=== PATIENT | female | born 1990 | race Caucasian/White ===

== ENCOUNTER 2020-12-05 11:45 | Outpatient (REF) | payer OTHER, SELFPAY ==
[2020-12-05 12:12] LABS: COVID-19 Test Positive (Negative)
== END 2020-12-05 11:46 | disposition home or self-care (01) ==
LOC: HO.LAB 11:45
PROVIDERS: Visit Provider Internal Medicine
DX: Z20.822 Contact with and (suspected) exposure to COVID-19 (principal)
CPT/HCPCS: 36415; 87635; C9803

== ENCOUNTER 2021-03-24 21:31 | Emergency (ER) | payer OTHER, SELFPAY | END 2021-03-24 22:01 | disposition left against medical advice (07) | PROVIDERS: Emergency Provider Emergency Medicine | DX: R10.9 Unspecified abdominal pain (principal) ==